=== PATIENT | male | born 1940 | race Hispanic/Latino ===

== ENCOUNTER → 2018-01-23 09:29 | Outpatient (CLI) | payer MEDICARE, SELFPAY ==
[2018-01-23 10:19] LABS: Hematocrit 33.3 % (41-53); Hemoglobin 10.9 g/dL (13.5-17.5)
== END ==
PROVIDERS: Visit Provider Internal Medicine Nephrology
DX: D63.1 Anemia in chronic kidney disease (principal); N18.4 Chronic kidney disease, stage 4 (severe)
CPT/HCPCS: 36415; 85014; 85018

== ENCOUNTER → 2018-02-06 11:00 | Outpatient (CLI) | payer MEDICARE, SELFPAY ==
[2018-02-06 12:27] LABS: Hematocrit 34.4 % (41-53); Hemoglobin 11.2 g/dL (13.5-17.5)
== END ==
PROVIDERS: Visit Provider Internal Medicine Nephrology
DX: N18.4 Chronic kidney disease, stage 4 (severe) (principal); D63.1 Anemia in chronic kidney disease
CPT/HCPCS: 36415; 85014; 85018

== ENCOUNTER → 2018-02-19 10:16 | Outpatient (CLI) | payer MEDICARE, SELFPAY ==
[2018-02-19 11:15] LABS: Add Manual Diff / Slide Review NO; Basophils Percent Auto 1.3 % (0-2); Eosinophils Percent Auto 3.2 % (2-4); Hemoglobin 10.8 g/dL (13.5-17.5); Lymphocytes Percent Auto 12.6 % (25-40); Mean Corpuscular HGB Conc 32.9 % (30-36); Mean Corpuscular Hemoglobin 30.1 PG (26-34); Mean Corpuscular Volume 91.6 fL (80-100); Monocytes Percent Auto 6.5 % (3-14); Neutrophils Absolute Auto 8200 /uL (3000-5900); Neutrophils Percent Auto 76.4 % (50-75); Platelet Count 243 X10^3/uL (150-400); Red Cell Distribution Width 17.1 % (11.6-14.8); White Blood Cell Count 10.8 X10^3/uL (4.5-11.0)
== END ==
PROVIDERS: Visit Provider Internal Medicine Nephrology
DX: I12.9 Hypertensive chronic kidney disease with stage 1 through stage 4 chronic kidney disease, or unspecified chronic kidney disease (principal); N18.3 Chronic kidney disease, stage 3 (moderate)
CPT/HCPCS: 36415; 85025